=== PATIENT | male | born 1985 | race African-American/Black ===

== ENCOUNTER 2019-09-16 21:51 | Emergency (ER) | payer MEDICAID ==
[~2019-09-16] VITALS: Ht 186.7 cm; Wt 84.1 kg
[2019-09-17] MEDS: LORazepam 1 MG TABLET PO ONE ×2 (02:57→03:10)
[2019-09-17 03:00] VITALS: BP 118/69
== END 2019-09-17 03:32 | disposition home or self-care (01) ==
LOC: EMS 21:53
DX: F41.9 Anxiety disorder, unspecified (principal); F17.210 Nicotine dependence, cigarettes, uncomplicated

== ENCOUNTER 2021-10-01 14:27 | Emergency (ER) | payer MEDICAID ==
[~2021-10-01] VITALS: Ht 180.3 cm; Wt 97.7 kg
[2021-10-01 15:27] VITALS: BP 143/89
== END 2021-10-01 16:54 | disposition home or self-care (01) ==
LOC: EMS 14:39
DX: F41.9 Anxiety disorder, unspecified (principal); F17.210 Nicotine dependence, cigarettes, uncomplicated
CPT/HCPCS: 99281; Z7502